=== PATIENT | female | born 1940 | race Caucasian/White ===

== ENCOUNTER 2020-11-13 04:16 | Day surgery (SDC) | payer OTHER, BC ==
[2020-11-12 10:39] VITALS: BMI 29.0
[2020-11-13] MEDS ORDERED: LIDOCAINE 1% P/F 10 MG/ML VIAL INF ONE (09:17)
[2020-11-13] MEDS ORDERED: TRIAMCINOLONE ACET 40MG/1ML VIAL IJ ONE (09:17)
[2020-11-13] MEDS ORDERED: IOHEXOL 180 MG/1 ML ML IJ ONE (09:18)
[2020-11-13] MEDS ORDERED: BUPIVACAINE HCL/PF 0.5% (5 MG/ML) 30 ML VIAL IJ ONE (09:18)
[2020-11-13 10:24] VITALS: BP 162/70; PULSE 70; TEMP 97.8
== END 2020-11-13 10:20 | disposition home or self-care (01) ==
LOC: JASU-SURG 04:16
PROVIDERS: ATTEND Pain Medicine Pain Medicine
PROC: 3E0U3BZ Introduction of Anesthetic Agent into Joints, Percutaneous Approach (ICD-10-PCS; 2020-11-13)
PROC: 3E0U33Z Introduction of Anti-inflammatory into Joints, Percutaneous Approach (ICD-10-PCS; principal; 2020-11-13 10:00)
DX: M53.3 Sacrococcygeal disorders, not elsewhere classified (principal)
CPT/HCPCS: 76000-TC-FY

== ENCOUNTER 2022-02-16 16:15 | Observation (INO) | payer OTHER, BC ==
[2022-02-16] MEDS ORDERED: ACETAMINOPHEN 500 MG TABLET (FP) PO ONE (17:00)
[2022-02-16 17:07] VITALS: BMI 27.4
[2022-02-16] MEDS ORDERED: ACETAMINOPHEN 500 MG TABLET (FP) ONE (17:34)
[2022-02-16 18:01] LABS: HEMATOCRIT 35.9 % (32.4-45.2); HEMOGLOBIN 12.9 G/dL (10.7-15.3); MCH 33.1 pg (25.7-33.7); MCHC 35.8 g/dl (32.0-36.0); MEAN CELL VOLUME 92.4 fl (80-96); MEAN PLT VOLUME 8.4 fl (7.5-11.1); PLATELET COUNT 294.3 10^3/uL (134-434); RBC 3.89 10^6/uL (3.60-5.2); WHITE BLOOD COUNT 15.5 10^3/uL (4.0-10.8)
[2022-02-16 18:09] LABS: INR 1.04 (0.83-1.09)
[2022-02-16 18:12] LABS: ACTIVATED PTT 32.3 SECONDS (25.2-36.5)
[2022-02-16 18:13] LABS: ALBUMIN 4.7 g/dl (3.4-5.0); BILIRUBIN,TOTAL 0.8 mg/dl (0.2-1); CALCIUM 9.8 mg/dl (8.5-10); CREATININE 0.9 mg/dl (0.55-1.3); MAGNESIUM 1.7 mg/dL (1.8-2.4); TOT PROT 7.6 g/dl (6.4-8.2)
[2022-02-16] MEDS ORDERED: SODIUM CHLORIDE 0.9% 500 ML INFUS.BAG IV ONE (18:19)
[2022-02-16 18:44] LABS: PLATELET ESTIMATE ADEQUATE
[2022-02-16] MEDS ORDERED: MAGNESIUM SULF 50% (8.12 MEQ/2 ML-1 GM VIAL) IVPB ONE ×2 (22:19→23:45)
[2022-02-16] MEDS ORDERED: INSULIN (NOVOLOG) ASPART 100 UNITS/ML 10ML VIAL SQ ONE (22:47)
[2022-02-16] MEDS ORDERED: hydrALAZINE HCL 50 MG TABLET (FP) PO ONE (23:35)
[2022-02-17] MEDS: LEVOTHYROXINE NA 25 MCG TABLET (FP) PO SCH (06:45)
[2022-02-17] MEDS: INSULIN SLIDING SCALE (NOVOLOG) 1 VIAL SQ SCH ×4 (06:49→21:21)
[2022-02-17 08:28] LABS: ALBUMIN 3.8 g/dl (3.4-5.0); BILIRUBIN,TOTAL 1.1 mg/dl (0.2-1); CALCIUM 9.5 mg/dl (8.5-10); CREATININE 0.9 mg/dl (0.55-1.3); TOT PROT 6.3 g/dl (6.4-8.2)
[2022-02-17 09:15] LABS: BASO % 0.8 % (0-2.0); EOS % 2.7 % (0-4.5); HEMATOCRIT 31.7 % (32.4-45.2); HEMOGLOBIN 11.3 GM/dL (10.7-15.3); LYMPH % 16.3 % (8-40); MCH 32.5 pg (25.7-33.7); MCHC 35.5 g/dl (32.0-36.0); MEAN CELL VOLUME 91.5 fl (80-96); MEAN PLT VOLUME 8.6 fl (7.5-11.1); MONO % 8.7 % (3.8-10.2); NEUT % 71.5 % (42.8-82.8); PLATELET COUNT 235 10^3/uL (134-434); RBC 3.47 M/mm3 (3.60-5.2); WHITE BLOOD COUNT 9.2 K/mm3 (4.0-10.0)
[2022-02-17] MEDS: hydrALAZINE HCL 50 MG TABLET (FP) PO SCH ×2 (09:37→21:17)
[2022-02-17 15:22] LABS: N-TERMINAL BNP 449.2 pg/ml (5-450)
[2022-02-17] MEDS ORDERED: ACETAMINOPHEN 325 MG TABLET (FP) PO PRN (18:40)
[2022-02-17] MEDS ORDERED: amLODIPine BESYLATE 10 MG TABLET (FP) PO SCH (22:00)
[2022-02-17] MEDS ORDERED: ATORVASTATIN CA 10 MG TABLET (FP) PO SCH (22:00)
[2022-02-18] MEDS: LEVOTHYROXINE NA 25 MCG TABLET (FP) PO SCH (06:25)
[2022-02-18] MEDS: INSULIN SLIDING SCALE (NOVOLOG) 1 VIAL SQ SCH ×2 (06:25→12:17)
[2022-02-18 08:40] LABS: ALBUMIN 3.4 g/dl (3.4-5.0); BILIRUBIN,TOTAL 1.1 mg/dl (0.2-1); CALCIUM 8.9 mg/dl (8.5-10); CREATININE 0.8 mg/dl (0.55-1.3); TOT PROT 5.9 g/dl (6.4-8.2)
[2022-02-18] MEDS: hydrALAZINE HCL 50 MG TABLET (FP) PO SCH (09:22)
[2022-02-18] MEDS ORDERED: LOSARTAN POTASSIUM 50 MG TABLET PO SCH (10:00)
[2022-02-18 10:05] LABS: EOS % 4.5 % (0-4.5); HEMATOCRIT 33.1 % (32.4-45.2); HEMOGLOBIN 11.2 GM/dL (10.7-15.3); MCH 31.1 pg (25.7-33.7); MCHC 33.7 g/dl (32.0-36.0); MEAN CELL VOLUME 92.3 fl (80-96); MEAN PLT VOLUME 8.9 fl (7.5-11.1); MONO % 8.6 % (3.8-10.2); NEUT % 67.9 % (42.8-82.8); PLATELET COUNT 225 10^3/uL (134-434); RBC 3.59 M/mm3 (3.60-5.2); RDW 12.6 % (11.6-15.6); WHITE BLOOD COUNT 7.7 K/mm3 (4.0-10.0)
[2022-02-18 14:02] VITALS: BP 160/52; PULSE 58; RESP 16; TEMP 98.1
== END 2022-02-18 16:30 | disposition home or self-care (01) ==
LOC: FER 16:15 → INTOOBSV 18:35 → FM/S 18:35
PROVIDERS: ADMIT Internal Medicine
PROC: 3E013VG Introduction of Insulin into Subcutaneous Tissue, Percutaneous Approach (ICD-10-PCS; principal; 2022-02-16)
PROC: 3E033GC Introduction of Other Therapeutic Substance into Peripheral Vein, Percutaneous Approach (ICD-10-PCS; 2022-02-16)
PROC: 3E0337Z Introduction of Electrolytic and Water Balance Substance into Peripheral Vein, Percutaneous Approach (ICD-10-PCS; 2022-02-16)
DX: R55 Syncope and collapse (principal); I10 Essential (primary) hypertension; E11.9 Type 2 diabetes mellitus without complications; E03.9 Hypothyroidism, unspecified; W18.39XA Other fall on same level, initial encounter; M25.511 Pain in right shoulder; Y93.89 Activity, other specified; Y92.003 Bedroom of unspecified non-institutional (private) residence as the place of occurrence of the external cause; Z87.891 Personal history of nicotine dependence; E66.01 Morbid (severe) obesity due to excess calories; Z68.44 Body mass index [BMI] 60.0-69.9, adult
CPT/HCPCS: 36415; 70450-TC; 70486-TC; 71045-TC-FY; 72125-TC; 72170-TC-FY; 73030-TC-RT-FY; 73060-TC-RT-FY; 80053; 80061; 81003; 81015; 82550; 82553; 82962; 83036; 83735; 83880; 84443; 84484; 85025; 85610; 85730; 87086; 93005; 93306-TC; 93880-TC; 96361; 96372; 96374; 97116-GP; 97162-GP; 99285-25; C9803-CS; G0378; U0003; U0005

== ENCOUNTER 2023-08-27 18:31 | Emergency (ER) | payer OTHER, BC ==
[2023-08-27 18:38] VITALS: PULSE 76; RESP 19; TEMP 98.1; BMI 27.4
[2023-08-27 19:35] LABS: HEMOGLOBIN 12.6 G/dL (10.7-15.3); MCH 30.6 pg (25.7-33.7); MEAN CELL VOLUME 90.1 fl (80-96); MEAN PLT VOLUME 8.6 fl (7.5-11.1); PLATELET COUNT 301.7 10^3/uL (134-434); RBC 4.11 10^6/uL (3.60-5.2); RDW 13.7 % (11.6-15.6); WHITE BLOOD COUNT 16.6 10^3/uL (4.0-10.8)
[2023-08-27 19:46] LABS: ALBUMIN 4.4 g/dl (3.4-5.0); BILIRUBIN,TOTAL 0.5 mg/dl (0.2-1); CALCIUM 9.8 mg/dl (8.5-10.1); CREATININE 1.4 mg/dl (0.6-1.3); POTASSIUM 4.4 mmol/L (3.5-5.1); TOT PROT 7.2 g/dl (6.4-8.2)
[2023-08-27] MEDS: LACTATED RINGERS SOLUTION 1,000 ML/1,000 ML INFUS.BAG IV STA (20:03)
[2023-08-27 20:28] LABS: VENOUS BASE EXCESS -3.8 mmol/L (-2-2); VENOUS O2 SATURATION 61.6 % (70-80); VENOUS PCO2 38.4 mmHg (38-52); VENOUS PH 7.359 (7.310-7.410)
[2023-08-27 20:45] LABS: PLATELET ESTIMATE ADEQUATE
[2023-08-27 20:53] VITALS: BP 175/70
[2023-08-27 22:24] LABS: BILIRUBIN,TOTAL 0.5 mg/dl (0.2-1); CALCIUM 9.6 mg/dl (8.5-10.1); CREATININE 1.2 mg/dl (0.6-1.3); POTASSIUM 4.4 mmol/L (3.5-5.1); TOT PROT 6.6 g/dl (6.4-8.2)
== END 2023-08-27 22:51 | disposition home or self-care (01) ==
LOC: FER 18:31
PROC: 3E0337Z Introduction of Electrolytic and Water Balance Substance into Peripheral Vein, Percutaneous Approach (ICD-10-PCS; principal; 2023-08-27)
PROC: 3E0337Z Introduction of Electrolytic and Water Balance Substance into Peripheral Vein, Percutaneous Approach (ICD-10-PCS; 2023-08-27)
DX: R42 Dizziness and giddiness (principal); R73.9 Hyperglycemia, unspecified; Z20.822 Contact with and (suspected) exposure to COVID-19
CPT/HCPCS: 0241U-QW; 36415; 71045-TC-FY; 73562-TC-RT-FY; 80053; 81003; 82010; 82803; 82962; 84484; 85027; 87086; 93005; 99285-25

== ENCOUNTER 2023-09-12 14:53 | Inpatient (IN) | payer OTHER, BC ==
[2023-09-12 17:24] LABS: HEMATOCRIT 34.3 % (32.4-45.2); HEMOGLOBIN 11.4 G/dL (10.7-15.3); MCH 30.5 pg (25.7-33.7); MCHC 33.2 g/dl (32.0-36.0); MEAN CELL VOLUME 91.7 fl (80-96); MEAN PLT VOLUME 8.3 fl (7.5-11.1); PLATELET COUNT 275.8 10^3/uL (134-434); RBC 3.74 10^6/uL (3.60-5.2); RDW 13.4 % (11.6-15.6); WHITE BLOOD COUNT 13.1 10^3/uL (4.0-10.8)
[2023-09-12 17:42] LABS: ALBUMIN 4.1 g/dl (3.4-5.0); BILIRUBIN,TOTAL 0.6 mg/dl (0.2-1); CALCIUM 10.1 mg/dl (8.5-10.1); CREATININE 1.4 mg/dl (0.6-1.3); POTASSIUM 4.5 mmol/L (3.5-5.1); TOT PROT 7.1 g/dl (6.4-8.2)
[2023-09-12 18:07] LABS: PLATELET ESTIMATE ADEQUATE
[2023-09-12] MEDS ORDERED: CLINDAMYCIN 600MG PREMIX IVPB 600 MG/50 ML BAG IVPB ONE (18:44)
[2023-09-12] MEDS: CLINDAMYCIN IVPB 300 MG in DEXTROSE 5%-WATER - 48 ML IVPB ONE (18:49)
[2023-09-12] MEDS: CLINDAMYCIN 600MG PREMIX IVPB 600 MG/50 ML BAG IVPB ONE (18:50)
[2023-09-12] MEDS ORDERED: PATIENT'S OWN MEDICATION (NON-FORMULARY) (Lisinopril/Hydrochlorothiazide [Lisinopril-Hctz PO SCH (22:00)
[2023-09-12 23:23] VITALS: BMI 28.1
[2023-09-12] MEDS: INSULIN (LEVEMIR) 100 UNITS/ML UNITS SQ SCH (23:37)
[2023-09-12] MEDS: ACETAMINOPHEN 500 MG TABLET (FP) PO PRN (23:37)
[2023-09-12] MEDS: HEPARIN NA (PORCINE) 5,000 UNITS/ML 1ML VIAL SQ SCH (23:37)
[2023-09-12] MEDS: LISINOPRIL 20 MG TABLET PO SCH (23:37)
[2023-09-12] MEDS: HYDROCHLOROTHIAZIDE 25 MG TABLET (FP) PO SCH (23:37)
[2023-09-12] MEDS: amLODIPine BESYLATE 10 MG TABLET (FP) PO SCH (23:37)
[2023-09-12] MEDS: INSULIN ASPART SLIDING SCALE (NOVOLOG) 1 VIAL SQ SCH (23:42)
[2023-09-12] MEDS: hydrALAZINE HCL 50 MG TABLET (FP) PO SCH (23:47)
[2023-09-13] MEDS: LATANOPROST 0.005% OPHTH SOLN 2.5ML BOTTLE OU SCH (00:08)
[2023-09-13] MEDS: CLINDAMYCIN 600MG PREMIX IVPB 600 MG/50 ML BAG IVPB SCH ×2 (04:47→06:09)
[2023-09-13] MEDS: LEVOTHYROXINE NA 25 MCG TABLET (FP) PO SCH (06:44)
[2023-09-13 08:06] LABS: CALCIUM 9.4 mg/dl (8.5-10.1); CREATININE 1.4 mg/dl (0.6-1.3)
[2023-09-13] MEDS: MULTIVITAMINS THER W-MINERALS COMBO TABLET (FP) PO SCH (09:27)
[2023-09-13] MEDS: CHOLECALCIFEROL (VIT D3) 1,000 UNIT (25 MCG) TABLET PO SCH (09:27)
[2023-09-13] MEDS ORDERED: PATIENT'S OWN MEDICATION (NON-FORMULARY) (Calcium Citrate [Calcium Citrate] 200 MG Tablet) PO SCH (10:00)
[2023-09-13 10:21] LABS: BASO % 0.7 % (0-2.0); HEMATOCRIT 30.6 % (32.4-45.2); HEMOGLOBIN 10.5 GM/dL (10.7-15.3); LYMPH % 17.5 % (8-40); MCH 30.9 pg (25.7-33.7); MCHC 34.4 g/dl (32.0-36.0); MEAN CELL VOLUME 89.8 fl (80-96); MEAN PLT VOLUME 8.8 fl (7.5-11.1); MONO % 9.9 % (3.8-10.2); NEUT % 69.9 % (42.8-82.8); PLATELET COUNT 315 10^3/uL (134-434); RDW 13.5 % (11.6-15.6); WHITE BLOOD COUNT 9.4 K/mm3 (4.0-10.0)
[2023-09-13] MEDS: CEFTRIAXONE 1 GM in DEXTROSE 5%-WATER - 50 ML IVPB SCH (16:09)
[2023-09-13] MEDS: ATORVASTATIN CA 10 MG TABLET (FP) PO SCH (22:42)
[2023-09-14 00:03] VITALS: RESP 18
[2023-09-14 09:07] LABS: BILIRUBIN,TOTAL 0.4 mg/dl (0.2-1); CALCIUM 9.6 mg/dl (8.5-10.1); CREATININE 1.1 mg/dl (0.6-1.3); POTASSIUM 4.4 mmol/L (3.5-5.1)
[2023-09-14 10:00] LABS: BASO % 0.5 % (0-2.0); HEMATOCRIT 32.6 % (32.4-45.2); HEMOGLOBIN 11.5 GM/dL (10.7-15.3); LYMPH % 13.6 % (8-40); MCH 31.4 pg (25.7-33.7); MCHC 35.2 g/dl (32.0-36.0); MEAN CELL VOLUME 89.2 fl (80-96); MEAN PLT VOLUME 8.7 fl (7.5-11.1); MONO % 10.3 % (3.8-10.2); NEUT % 74.6 % (42.8-82.8); PLATELET COUNT 375 10^3/uL (134-434); RBC 3.66 M/mm3 (3.60-5.2); RDW 13.4 % (11.6-15.6); WHITE BLOOD COUNT 12.1 K/mm3 (4.0-10.0)
[2023-09-15 06:37] VITALS: PULSE 68
[2023-09-15 09:18] LABS: BASO % 0.7 % (0-2.0); EOS % 2.7 % (0-4.5); HEMATOCRIT 30.1 % (32.4-45.2); HEMOGLOBIN 10.4 GM/dL (10.7-15.3); LYMPH % 18.1 % (8-40); MCHC 34.5 g/dl (32.0-36.0); MEAN CELL VOLUME 89.9 fl (80-96); MEAN PLT VOLUME 8.4 fl (7.5-11.1); MONO % 10.7 % (3.8-10.2); NEUT % 67.8 % (42.8-82.8); PLATELET COUNT 320 10^3/uL (134-434); RBC 3.35 M/mm3 (3.60-5.2); RDW 13.2 % (11.6-15.6); WHITE BLOOD COUNT 8.4 K/mm3 (4.0-10.0)
[2023-09-15] MEDS: COLLAGENASE CLOSTRIDIUM HIST. 30 GRAMS TUBE TP SCH (11:01)
[2023-09-15 12:08] VITALS: BP 130/51; TEMP 98.1
== END 2023-09-15 16:47 | disposition home or self-care (01) | DRG 594 ==
LOC: FER 14:53 → FM/S 18:30
PROVIDERS: ADMIT Internal Medicine
DX: L89.612 Pressure ulcer of right heel, stage 2 (principal); E03.9 Hypothyroidism, unspecified; I87.8 Other specified disorders of veins; I12.9 Hypertensive chronic kidney disease with stage 1 through stage 4 chronic kidney disease, or unspecified chronic kidney disease; E11.22 Type 2 diabetes mellitus with diabetic chronic kidney disease; N18.9 Chronic kidney disease, unspecified; E78.5 Hyperlipidemia, unspecified; Z79.4 Long term (current) use of insulin
CPT/HCPCS: 36415; 73630-TC-RT-FY; 73718-TC-RT; 76775-TC; 80048; 80053; 82962; 83036; 85025; 85027; 85651; 86140; 87040; 93971-TC; 97116-GP; 97161-GP; 99285-25; J1644

== ENCOUNTER 2024-02-18 13:55 | Inpatient (IN) | payer OTHER, BC ==
[2024-02-18] MEDS: SODIUM CHLORIDE 500 ML IV STA ×2 (14:50→16:25)
[2024-02-18] MEDS: SODIUM CHLORIDE 0.9% 500 ML INFUS.BAG IV ONE (14:57)
[2024-02-18 15:26] LABS: HEMATOCRIT 38.4 % (32.4-45.2); HEMOGLOBIN 12.4 G/dL (10.7-15.3); MCH 30.2 pg (25.7-33.7); MCHC 32.4 g/dl (32.0-36.0); MEAN CELL VOLUME 93.2 fl (80-96); MEAN PLT VOLUME 8.9 fl (7.5-11.1); PLATELET COUNT 257.9 10^3/uL (134-434); RBC 4.12 10^6/uL (3.60-5.2); RDW 14.2 % (11.6-15.6); WHITE BLOOD COUNT 12.1 10^3/uL (4.0-10.8)
[2024-02-18 15:38] LABS: ALBUMIN 4.5 g/dl (3.4-5.0); BILIRUBIN,TOTAL 0.8 mg/dl (0.2-1); CALCIUM 9.9 mg/dl (8.5-10.1); CREATININE 2.1 mg/dl (0.6-1.3); POTASSIUM 4.9 mmol/L (3.5-5.1); TOT PROT 7.3 g/dl (6.4-8.2)
[2024-02-18 16:00] LABS: PLATELET ESTIMATE ADEQUATE
[2024-02-18] MEDS ORDERED: INSULIN REGULAR HUMAN 100 UNITS/ML *VIAL ONE (17:44)
[2024-02-18] MEDS: INSULIN REGULAR HUMAN 100 UNITS/ML *VIAL SQ ONE (17:47)
[2024-02-18 18:54] VITALS: BMI 26.1
[2024-02-18] MEDS ORDERED: ACETAMINOPHEN 325 MG TABLET (FP) PO PRN (19:48)
[2024-02-18] MEDS: SODIUM CHLORIDE 1,000 ML IV SCH (20:00)
[2024-02-18] MEDS ORDERED: INSULIN ASPART SLIDING SCALE (NOVOLOG) 1 VIAL SQ ONE (21:47)
[2024-02-18] MEDS: INSULIN ASPART SLIDING SCALE (NOVOLOG) 1 VIAL SQ SCH (21:52)
[2024-02-19 00:01] VITALS: RESP 18
[2024-02-19] MEDS: hydrALAZINE HCL 50 MG TABLET (FP) PO SCH (00:59)
[2024-02-19] MEDS: LISINOPRIL 20 MG TABLET PO ONE (00:59)
[2024-02-19] MEDS ORDERED: INSULIN ASPART SLIDING SCALE (NOVOLOG) 1 VIAL SQ ONE (06:39)
[2024-02-19] MEDS: LEVOTHYROXINE NA 25 MCG TABLET (FP) PO SCH (06:43)
[2024-02-19 09:20] LABS: ALBUMIN 3.6 g/dl (3.4-5.0); BILIRUBIN,TOTAL 0.6 mg/dl (0.2-1); CALCIUM 8.7 mg/dl (8.5-10.1); CREATININE 1.2 mg/dl (0.6-1.3); MAGNESIUM 1.3 mg/dL (1.8-2.4); POTASSIUM 3.5 mmol/L (3.5-5.1); TOT PROT 5.6 g/dl (6.4-8.2)
[2024-02-19 10:02] LABS: EOS % 4.8 % (0-4.5); HEMATOCRIT 29.1 % (32.4-45.2); HEMOGLOBIN 10.2 GM/dL (10.7-15.3); LYMPH % 30.5 % (8-40); MCH 31.3 pg (25.7-33.7); MCHC 35.2 g/dl (32.0-36.0); MEAN CELL VOLUME 88.8 fl (80-96); MEAN PLT VOLUME 8.5 fl (7.5-11.1); MONO % 8.6 % (3.8-10.2); NEUT % 55.1 % (42.8-82.8); PLATELET COUNT 227 10^3/uL (134-434); RBC 3.27 M/mm3 (3.60-5.2); RDW 13.9 % (11.6-15.6); WHITE BLOOD COUNT 7.1 K/mm3 (4.0-10.0)
[2024-02-19] MEDS: METOPROLOL SUCCINATE 100 MG, METOPROLOL SUCCINATE 50 MG PO SCH (10:31)
[2024-02-19] MEDS: INSULIN (LEVEMIR) 100 UNITS/ML UNITS SQ SCH (12:31)
[2024-02-19] MEDS: amLODIPine BESYLATE 10 MG TABLET (FP) PO SCH (21:21)
[2024-02-20 08:38] LABS: HEMATOCRIT 31.9 % (32.4-45.2); HEMOGLOBIN 10.7 G/dL (10.7-15.3); MCH 31.1 pg (25.7-33.7); MCHC 33.4 g/dl (32.0-36.0); MEAN PLT VOLUME 8.7 fl (7.5-11.1); RBC 3.43 10^6/uL (3.60-5.2); RDW 14.1 % (11.6-15.6); WHITE BLOOD COUNT 6.7 10^3/uL (4.0-10.8)
[2024-02-20 09:15] LABS: CALCIUM 8.6 mg/dl (8.5-10.1); MAGNESIUM 1.4 mg/dL (1.8-2.4); PHOSPHOROUS 2.6 (2.5-4.9); POTASSIUM 3.5 mmol/L (3.5-5.1)
[2024-02-20] MEDS: MAGNESIUM OXIDE 400 MG TABLET (FP) PO ONE (13:04)
[2024-02-20 15:14] VITALS: BP 160/57; PULSE 66; TEMP 97.2
== END 2024-02-20 17:02 | disposition home or self-care (01) | DRG 684 ==
LOC: FER 13:55 → FM/S 16:35 → OBSVTOIN 02-19 10:47
PROVIDERS: ADMIT Internal Medicine; ATTEND Internal Medicine
DX: N17.9 Acute kidney failure, unspecified (principal); E11.65 Type 2 diabetes mellitus with hyperglycemia; R19.7 Diarrhea, unspecified; E86.0 Dehydration; E03.9 Hypothyroidism, unspecified; I10 Essential (primary) hypertension; E78.5 Hyperlipidemia, unspecified
CPT/HCPCS: 36415; 71045-TC-FY; 80048; 80053; 81003; 82962; 83735; 84100; 84443; 85025; 85027; 93005; 97116-GP; 97162-GP; 99285-25; G0378